=== PATIENT | female | born 1980 | race Hispanic/Latino ===

== ENCOUNTER 2021-12-10 09:15 | Emergency (ER) | payer OTHER ==
[2021-12-10] MEDS ORDERED: IPRATROPIUM 0.02% NEBU 2.5 ML IH ONE (09:50)
[2021-12-10] MEDS ORDERED: ALBUTEROL 2.5 MG/3 ML NEBU IH ONE (09:50)
[2021-12-10] MEDS ORDERED: dexAMETHasone 20 MG/5 ML VIAL IV ONE (09:51)
--- NOTE | 2021-12-10 12:18 | Emergency Department Report ---
ED General Adult HPI - General Chief complaint: Adult Asthma Stated complaint: ASTHMA ATTACK Time Seen by Provider: 12/10/21 09:50 Source: patient Mode of arrival: Ambulatory Limitations: No Limitations - History of Present Illness Initial comments: Patient is a 41-year-old female who presents with shortness of breath that has been going on since 9 PM last night. Shortness of breath is moderate. She states that she recently picked up her asthmatic medication she denies having any chest pain she states her shortness of breath is worse with exertion no leg swelling no cough. Severity scale (0 -10): 0 - Related Data Allergies Allergy/AdvReac Type Severity Reaction Status Date / Time No Known Allergies Allergy Unverified 12/10/21 09:42 ED Review of Systems ROS: Stated complaint: ASTHMA ATTACK Other details as noted in HPI Constitutional: denies: chills, fever Eyes: denies: eye pain, eye discharge, vision change ENT: denies: ear pain, throat pain Respiratory: shortness of breath. denies: cough, wheezing Cardiovascular: denies: chest pain, palpitations Endocrine: no symptoms reported Gastrointestinal: denies: abdominal pain, nausea, diarrhea Genitourinary: denies: urgency, dysuria, discharge Musculoskeletal: denies: back pain, joint swelling, arthralgia Skin: denies: rash, lesions Neurological: denies: headache, weakness, paresthesias Psychiatric: denies: anxiety, depression Hematological/Lymphatic: denies: easy bleeding, easy bruising ED Past Medical Hx - Past Medical History Previous Medical History?: Yes Hx Asthma: Yes - Surgical History Past Surgical History?: Yes Hx Cholecystectomy: Yes Additional Surgical History: DNC - Social History Smoking Status: Current Every Day Smoker Substance Use Type: None ED Physical Exam - General Limitations: No Limitations General appearance: alert, in no apparent distress - Head Head exam: Present: atraumatic, normocephalic - Eye Eye exam: Present: normal appearance - ENT ENT exam: Present: mucous membranes moist - Neck Neck exam: Present: normal inspection - Respiratory Respiratory exam: Present: wheezes. Absent: respiratory distress - Cardiovascular Cardiovascular Exam: Present: regular rate, normal rhythm. Absent: systolic murmur, diastolic murmur, rubs, gallop - GI/Abdominal GI/Abdominal exam: Present: soft, normal bowel sounds - Extremities Exam Extremities exam: Present: normal inspection - Back Exam Back exam: Present: normal inspection - Neurological Exam Neurological exam: Present: alert, oriented X3 - Psychiatric Psychiatric exam: Present: normal affect, normal mood - Skin Skin exam: Present: warm, dry, intact, normal color. Absent: rash ED Course Vital Signs 12/10/21 12/10/21 12/10/21 09:37 09:56 09:59 Temperature 98.3 F Pulse Rate 85 94 H Pulse Rate [ Bilateral] Respiratory 18 18 19 Rate Respiratory Rate [Bilateral ] Blood Pressure Blood Pressure 143/69 [Left] O2 Sat by Pulse 90 94 95 Oximetry 12/10/21 12/10/21 12/10/21 10:00 10:15 10:16 Temperature Pulse Rate 96 H 87 Pulse Rate [ 89 Bilateral] Respiratory 23 15 Rate Respiratory 18 Rate [Bilateral ] Blood Pressure 151/88 141/86 Blood Pressure [Left] O2 Sat by Pulse 94 95 Oximetry 12/10/21 12/10/21 12/10/21 10:30 10:46 11:00 Temperature Pulse Rate 85 84 88 Pulse Rate [ Bilateral] Respiratory 18 16 15 Rate Respiratory Rate [Bilateral ] Blood Pressure 141/86 150/90 150/90 Blood Pressure [Left] O2 Sat by Pulse 98 98 97 Oximetry 12/10/21 12/10/21 12/10/21 11:16 11:30 11:46 Temperature Pulse Rate 86 91 H 91 H Pulse Rate [ Bilateral] Respiratory 20 16 19 Rate Respiratory Rate [Bilateral ] Blood Pressure 144/83 144/83 144/83 Blood Pressure [Left] O2 Sat by Pulse 97 97 98 Oximetry 12/10/21 12/10/21 12:00 12:16 Temperature Pulse Rate 92 H 95 H Pulse Rate [ Bilateral] Respiratory 19 22 Rate Respiratory Rate [Bilateral ] Blood Pressure 147/81 157/88 Blood Pressure [Left] O2 Sat by Pulse 98 96 Oximetry - Consultations Consultation #1: 12/10/21 12:44 Patient is feeling better and can be discharged home. ED Medical Decision Making - Medical Decision Making Cdx: Asthmatic excerbatiopn ddx: Bronchitis, smoke exposure I will give breathing treatment and steroids and I will reevaluate the patient Critical care attestation.: If time is entered above; I have spent that time in minutes in the direct care of this critically ill patient, excluding procedure time. ED Disposition Clinical Impression: Asthma exacerbation Qualifiers: Asthma severity: moderate Asthma persistence: unspecified Qualified Code(s): J45.901 - Unspecified asthma with (acute) exacerbation Disposition: 01 HOME / SELF CARE / HOMELESS Is pt being admited?: No Does the pt Need Aspirin: No Condition: Stable Instructions: Asthma, Adult Referrals: PRIMARY CARE, [Primary Care Provider] - 3-5 Days HENRY SHER MD [Staff Physician] - 3-5 Days
[2021-12-10 13:19] VITALS: BP 131/77
--- NOTE | 2021-12-11 09:13 | Electrocardiograph Report ---
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
== END 2021-12-10 13:19 | disposition home or self-care (01) ==
LOC: ED 09:15
DX: J45.901 Unspecified asthma with (acute) exacerbation (principal); F17.210 Nicotine dependence, cigarettes, uncomplicated
CPT/HCPCS: 93005; 94644; 96374; 99283; J1100

== ENCOUNTER 2021-12-21 17:04 | Emergency (ER) | payer OTHER ==
[2021-12-21] MEDS ORDERED: dexAMETHasone 20 MG/5 ML VIAL IV ONE (17:14)
[2021-12-21] MEDS ORDERED: IPRATROPIUM 0.02% NEBU 2.5 ML IH ONE (17:14)
[2021-12-21] MEDS ORDERED: ALBUTEROL 2.5 MG/3 ML NEBU IH ONE (17:14)
[2021-12-21 17:35] VITALS: BP 161/100
[2021-12-21] MEDS ORDERED: TERBUTALINE 1 MG/1 ML INJ SUB-Q ONE (18:27)
--- NOTE | 2021-12-21 20:00 | Emergency Department Report ---
ED Asthma HPI - General Chief Complaint: Dyspnea/Respdistress Stated Complaint: ASTHMA ATTACK Time Seen by Provider: 12/21/21 18:26 Source: patient Mode of arrival: Ambulatory Limitations: No Limitations - History of Present Illness Initial Comments: 41-year-old white female with a past medical history of asthma presents to the emergency department for evaluation of 1 day history of worsening shortness of breath and wheezing. She states that she was using her albuterol nebulizer at home but was not having any improvement. She denies chest pain, fever, dizziness, nausea, vomiting, and abdominal pain. MD Complaint: "asthma attack", shortness of breath, wheezing -: hour(s) Severity: moderate Associated Symptoms: dry cough. denies: fever, chest pain, hemoptysis, leg edema, syncope Treatments Prior to Arrival: inhaled bronchodilator - Related Data Current Asthma Therapy: inhaled bronchodilator Previous Rx's Medication Instructions Recorded Last Taken Type Benzonatate [Tessalon Perles] 100 mg PO Q8HR PRN #30 cap 12/21/21 Unknown Rx Prednisone [predniSONE 10 mg 10 mg PO .TAPER #1 pack 12/21/21 Unknown Rx (6-Day Pack, 21 Tabs)] guaiFENesin/CODEINE [Robitussin AC] 10 ml PO TID PRN #120 ml 12/21/21 Unknown Rx Allergies Allergy/AdvReac Type Severity Reaction Status Date / Time No Known Allergies Allergy Unverified 12/10/21 09:42 ED Review of Systems ROS: Stated complaint: ASTHMA ATTACK Other details as noted in HPI Comment: All other systems reviewed and negative Constitutional: denies: chills, fever Eyes: denies: eye discharge ENT: denies: congestion Respiratory: cough, shortness of breath, wheezing. denies: SOB with exertion, SOB at rest, stridor Cardiovascular: denies: chest pain, palpitations, dyspnea on exertion, orthopnea, edema, syncope, paroxysmal nocturnal dyspnea Gastrointestinal: denies: abdominal pain, nausea, vomiting, diarrhea, hematemesis, melena, hematochezia Genitourinary: denies: urgency, dysuria Musculoskeletal: denies: back pain Skin: denies: rash, lesions Neurological: denies: headache, weakness Psychiatric: denies: anxiety, depression ED Past Medical Hx - Past Medical History Hx Asthma: Yes Additional medical history: colonscopy - Surgical History Hx Cholecystectomy: Yes Additional Surgical History: DNC, tubal ligation, intubated twice for asthma - Social History Smoking Status: Never Smoker - Medications Home Medications: Home Medications Medication Instructions Recorded Confirmed Last Taken Type Benzonatate [Tessalon Perles] 100 mg PO Q8HR PRN #30 cap 12/21/21 Unknown Rx Prednisone [predniSONE 10 mg 10 mg PO .TAPER #1 pack 12/21/21 Unknown Rx (6-Day Pack, 21 Tabs)] guaiFENesin/CODEINE [Robitussin AC] 10 ml PO TID PRN #120 ml 12/21/21 Unknown R x ED Physical Exam - General Limitations: No Limitations General appearance: alert, in no apparent distress - Head Head exam: Present: atraumatic, normocephalic - Eye Eye exam: Present: normal appearance. Absent: scleral icterus, conjunctival injection, periorbital swelling, periorbital tenderness - ENT ENT exam: Present: normal exam - Neck Neck exam: Present: normal inspection, full ROM. Absent: tenderness, lymphadenopathy - Respiratory Respiratory exam: Present: wheezes. Absent: respiratory distress, rales, rhonchi, stridor, chest wall tenderness, accessory muscle use - Cardiovascular Cardiovascular Exam: Present: tachycardia, normal heart sounds - GI/Abdominal GI/Abdominal exam: Present: soft, normal bowel sounds. Absent: distended, tenderness, guarding, rebound, rigid - Extremities Exam Extremities exam: Present: normal inspection, full ROM, normal capillary refill. Absent: pedal edema, joint swelling, calf tenderness - Back Exam Back exam: Present: normal inspection. Absent: CVA tenderness (R), CVA tenderness (L) - Neurological Exam Neurological exam: Present: alert, oriented X3, normal gait - Psychiatric Psychiatric exam: Present: normal affect, normal mood - Skin Skin exam: Present: warm, dry, intact, normal color ED Course Vital Signs 12/21/21 17:08 Temperature 98.9 F Pulse Rate 116 H Respiratory 28 H Rate Blood Pressure 161/100 O2 Sat by Pulse 89 Oximetry ED Medical Decision Making - Medical Decision Making 41-year-old white female with a past medical history of asthma presents to the emergency department for evaluation of 1 day history of worsening shortness of breath and wheezing. She states that she was using her albuterol nebulizer at home but was not having any improvement. She denies chest pain, fever, dizziness, nausea, vomiting, and abdominal pain. Wheezing and shortness of breath resolved completely after medications and DuoNeb. Patient states that she feels much better. She will be discharged home with steroid Dosepak along with Tessalon and Robitussin-AC to use as needed for cough. She is advised to follow-up with her primary care provider or pulmon ologist for further evaluation and management or return to the emergency department for any concerning symptoms. She verbalizes understanding of and agreement with plan of care. Critical care attestation.: If time is entered above; I have spent that time in minutes in the direct care of this critically ill patient, excluding procedure time. ED Disposition Clinical Impression: Asthma exacerbation Qualifiers: Asthma severity: mild Asthma persistence: intermittent Qualified Code(s): J45.21 - Mild intermittent asthma with (acute) exacerbation Disposition: HOME / SELF CARE / HOMELESS Is pt being admited?: No Does the pt Need Aspirin: No Condition: Stable Instructions: Asthma, Adult, [id number], Asthma Attack, Asthma Attack Prevention, Adult Additional Instructions: Take medications as prescribed. Follow-up with your primary care provider or lung doctor if no improvement or worsening symptoms. Return to the emergency department as needed. Prescriptions: Prednisone [predniSONE 10 mg (6-Day Pack, 21 Tabs)] 10 mg PO .TAPER #1 pack guaiFENesin/CODEINE [Robitussin AC] 10 ml PO TID PRN #120 ml PRN Reason: Cough Benzonatate [Tessalon Perles] 100 mg PO Q8HR PRN #30 cap PRN Reason: Cough Referrals: HERNY SHER MD [Staff Physician] - 3-5 Days MIKE GARY MD [Staff Physician] - 3-5 Days Time of Disposition: 20:02
== END 2021-12-21 22:04 | disposition home or self-care (01) ==
LOC: ED 17:04
DX: J45.901 Unspecified asthma with (acute) exacerbation (principal); Z90.49 Acquired absence of other specified parts of digestive tract; Z79.899 Other long term (current) drug therapy
CPT/HCPCS: 94640; 96372; 96374; 99283; J1100; J3105

== ENCOUNTER 2021-12-22 08:12 | Inpatient (IN) | payer OTHER ==
[2021-12-22] MEDS ORDERED: ALBUTEROL 2.5 MG/3 ML NEBU IH ONE ×3 (10:30→15:04)
[2021-12-22] MEDS ORDERED: IPRATROPIUM 0.02% NEBU 2.5 ML IH ONE ×3 (10:30→15:04)
--- NOTE | 2021-12-22 11:11 | XRay Report ---
CHEST 1 VIEW 12/22/2021 10:00 AM INDICATION / CLINICAL INFORMATION: SOB. COMPARISON: None available. FINDINGS: SUPPORT DEVICES: None. HEART / MEDIASTINUM: No significant abnormality. LUNGS / PLEURA: No significant pulmonary or pleural abnormality. No pneumothorax. ADDITIONAL FINDINGS: No significant additional findings. IMPRESSION: 1. No acute findings. Signer Name: Mati Trinidad MD Signed: 12/22/2021 11:04 AM Workstation Name: [id number]
[2021-12-22] MEDS ORDERED: methylPREDNISolone Sod Succinate 125 MG/2 ML INJ IV ONE ×2 (11:38→15:00)
[2021-12-22] MEDS ORDERED: MAGNESIUM SULFATE 2 GM/50 ML BAG IV ONE ×3 (11:38→22:00)
--- NOTE | 2021-12-22 11:58 | Emergency Department Report ---
ED Asthma HPI - General Chief Complaint: Dyspnea/Respdistress Stated Complaint: SOB Time Seen by Provider: 12/22/21 11:15 Source: patient Mode of arrival: Ambulatory Limitations: No Limitations - History of Present Illness Initial Comments: 41-year-old obese female history of asthma with 2 previous intubations several years ago presents to the hospital with wheezing, shortness of breath, and hypoxia. Patient reports home pulse ox reading of 74%. Patient suspected she was hypoxic because she was short of breath and had a headache. Symptoms with exertion. No alleviating factors reported. she complains of generalized chest tightness, occasional cough with sneezing. She denies calf tenderness, leg edema, history of PE/DVT, or current control pill use (history of tubal ligation). Patient was here twice this month including yesterday with acute asthma exacerbation. She has not yet filled her prednisone prescription which was provided yesterday. Patient suspects she is having frequent exacerbation because she has run out of Labcyte and cannot afford to buy another afford the medication. She states her doctor who is located in [place] typically gives her free samples but she is here visiting here mother. - Related Data Previous Rx's Medication Instructions Recorded Last Taken Type Benzonatate [Tessalon Perles] 100 mg PO Q8HR PRN #30 cap 12/21/21 Unknown Rx Prednisone [predniSONE 10 mg 10 mg PO .TAPER #1 pack 12/21/21 Unknown Rx (6-Day Pack, 21 Tabs)] guaiFENesin/CODEINE [Robitussin AC] 10 ml PO TID PRN #120 ml 12/21/21 Unknown Rx Allergies Allergy/AdvReac Type Severity Reaction Status Date / Time No Known Allergies Allergy Verified 12/22/21 14:26 ED Review of Systems ROS: Stated complaint: SOB Other details as noted in HPI ED Past Medical Hx - Past Medical History Hx Asthma: Yes Additional medical history: colonscopy - Surgical History Hx Cholecystectomy: Yes Additional Surgical History: DNC, tubal ligation, intubated twice for asthma - Social History Smoking Status: Never Smoker - Medications Home Medications: Home Medications Medication Instructions Recorded Confirmed Last Taken Type Benzonatate [Tessalon Perles] 100 mg PO Q8HR PRN #30 cap 12/21/21 Unknown Rx Prednisone [predniSONE 10 mg 10 mg PO .TAPER #1 pack 12/21/21 Unknown Rx (6-Day Pack, 21 Tabs)] guaiFENesin/CODEINE [Robitussin AC] 10 ml PO TID PRN #120 ml 12/21/21 Unknown Rx ED Physical Exam - General Limitations: No Limitations - Other Other exam information: General: Mild respiratory distress Head: Atraumatic Eyes: normal appearance ENT: Moist mucous membranes Neck: Normal appearance, no midline tenderness Chest: Bilateral tachypnea wheezing CV: Mild tachycardia regular rhythm Abdomen: Soft, normal bowel sounds, nontender, nondistended, no rebound or guarding Back: Normal inspection Extremity: Normal inspection, full range of motion, no calf tenderness or leg Neuro: Alert O x 3, no facial asymmetry, speech clear, no gross motor sensory deficit Psych: Appropriate behavior Skin: No rash ED Course Vital Signs 12/22/21 08:24 Temperature 98.3 F Pulse Rate 116 H Respiratory 24 Rate Blood Pressure 157/94 O2 Sat by Pulse 86 Oximetry ED Medical Decision Making - Lab Data Result diagrams: 12/22/21 12:17 12/22/21 12:17 Lab Results 12/22/21 12/22/21 12/22/21 Range/Units 12:17 12:17 12:17 WBC 24.6 H (4.5-11.0) K/mm3 RBC 4.73 (3.65-5.03) M/mm3 Hgb 13.5 (10.1-14.3) gm/dl Hct 41.3 (30.3-42.9) % MCV 87 (79-97) fl MCH 29 (28-32) pg MCHC 33 (30-34) % RDW 14.7 (13.2-15.2) % Plt Count 392 (140-440) K/mm3 Add Manual Diff Complete Total Counted 100 Seg Neuts % (Manual) 91.0 H (40.0-70.0) % Band Neutrophils % 1.0 % Lymphocytes % (Manual) 6.0 L (13.4-35.0) % Reactive Lymphs % (Man) 0 % Monocytes % (Manual) 2.0 (0.0-7.3) % Eosinophils % (Manual) 0 (0.0-4.3) % Basophils % (Manual) 0 (0.0-1.8) % Metamyelocytes % 0 % Myelocytes % 0 % Promyelocytes % 0 % Blast Cells % 0 % Nucleated RBC % Not Reportable Seg Neutrophils # Man 22.4 H (1.8-7.7) K/mm3 Band Neutrophils # 0.2 K/mm3 Lymphocytes # (Manual) 1.5 (1.2-5.4) K/mm3 Abs React Lymphs (Man) 0.0 K/mm3 Monocytes # (Manual) 0.5 (0.0-0.8) K/mm3 Eosinophils # (Manual) 0.0 (0.0-0.4) K/mm3 Basophils # (Manual) 0.0 (0.0-0.1) K/mm3 Metamyelocytes # 0.0 K/mm3 Myelocytes # 0.0 K/mm3 Promyelocytes # 0.0 K/mm3 Blast Cells # 0.0 K/mm3 WBC Morphology Not Reportable Hypersegmented Neuts Not Reportable Hyposegmented Neuts Rare Hypogranular Neuts Not Reportable Smudge Cells Not Reportable Toxic Granulation Not Reportable Toxic Vacuolation Not Reportable Dohle Bodies Not Reportable Pelger-Huet Anomaly Not Reportable Carlos Rods Not Reportable Platelet Estimate Consistent w auto Clumped Platelets Not Reportable Plt Clumps, EDTA Not Reportable Large Platelets Rare Giant Platelets Not Reportable Platelet Satelliting Not Reportable Plt Morphology Comment Not Reportable RBC Morphology Not Reportable Dimorphic RBCs Not Reportable Polychromasia Not Reportable Hypochromasia Not Reportable Poikilocytosis Few Anisocytosis Not Reportable Microcytosis Not Reportable Macrocytosis Not Reportable Spherocytes Not Reportable Pappenheimer Bodies Not Reportable Sickle Cells Not Reportable Target Cells Not Reportable Tear Drop Cells Not Reportable Ovalocytes Rare Helmet Cells Not Reportable [place] Bodies Not Reportable Prim Rings Not Reportable Lindsay Cells Rare Bite Cells Not Reportable Crenated Cell Not Reportable Elliptocytes Not Reportable Acanthocytes (Spur) Not Reportable Rouleaux Not Reportable Hemoglobin C Crystals Not Reportable Schistocytes Rare Malaria parasites Not Reportable Werner Bodies Not Reportable Hem Pathologist Commnt No PT 13.7 (12.2-14.9) Sec. INR 0.95 (0.87-1.13) Sodium 137 (137-145) mmol/L Potassium 4.2 (3.6-5.0) mmol/L Chloride 102.5 (98-107) mmol/L Carbon Dioxide 23 (22-30) mmol/L Anion Gap 16 mmol/L BUN 14 (7-17) mg/dL Creatinine 0.8 (0.6-1.2) mg/dL Estimated GFR > 60 ml/min BUN/Creatinine Ratio 18 % Glucose 134 H (65-100) mg/dL Calcium 9.5 (8.4-10.2) mg/dL - EKG Data -: EKG Interpreted by Me (BRIANNA) EKG shows normal: sinus rhythm Rate: tachycardia (112) - EKG Data When compared to previous EKG there are: no significant change - Radiology Data Radiology results: report reviewed CHEST 1 VIEW 12/22/2021 10:00 AM INDICATION / CLINICAL INFORMATION: SOB. COMPARISON: None available. FINDINGS: SUPPORT DEVICES: None. HEART / MEDIASTINUM: No significant abnormality. LUNGS / PLEURA: No significant pulmonary or pleural abnormality. No pne umothorax. ADDITIONAL FINDINGS: No significant additional findings. IMPRESSION: 1. No acute findings. - Medical Decision Making 41-year female with a past medical history of asthma with 2 previous intubations presents to the hospital with persistent asthma despite ED treatment yesterday. Patient continues to have significant wheezing, hypoxia, shortness of breath despite aggressive management in the ED. Patient treated with supplemental oxygen for initial room air saturation 86%, continuous nebs, Solu-Medrol, and magnesium and continues to have significant wheezing. Leukocytosis noted which is unclear if this is secondary to steroid use, stress reaction, or infection. Blood cultures and UA ordered. Patient empirically treated with azithromycin. Case discussed with Dr. Arroyo hospitalist to admit Critical Care Time: Yes Critical care time in (mins) excluding proc time.: 40 Critical care attestation.: If time is entered above; I have spent that time in minutes in the direct care of this critically ill patient, excluding procedure time. Critical Care Time: 40 Minutes of critical care time excluding procedures were used in the care of the patient. I reviewed electronic record. I spoke with family to obtain medical history. Patient required multiple interventions and reassessments including continuous bronchodilators, and supplemental oxygen. ED Disposition Clinical Impression: Acute respiratory failure with hypoxia, Status asthmaticus, SIRS (systemic inflammatory response syndrome) Disposition: 09 ADMITTED INPATIENT Is pt being admited?: Yes Condition: Stable Time of Disposition: 15:09
[2021-12-22 13:07] LABS: Hematocrit 41.3 % (30.3-42.9); Hemoglobin 13.5 gm/dl (10.1-14.3); Mean Corpuscular HGB Conc 33 % (30-34); Mean Corpuscular Volume 87 fl (79-97); Platelet Count 392 K/mm3 (140-440); Red Blood Count 4.73 M/mm3 (3.65-5.03); Red Cell Distribution Width 14.7 % (13.2-15.2)
[2021-12-22 13:13] LABS: BUN/Creatinine Ratio 18; Blood Urea Nitrogen 14 mg/dL (7-17); Calcium 9.5 mg/dL (8.4-10.2); Hemolysis Index 5
[2021-12-22 13:15] LABS: INR 0.95 (0.87-1.13)
[2021-12-22 14:38] LABS: Band Neutrophils # (Manual) 0.2 K/mm3; Basophils % (Manual) 0 % (0.0-1.8); Eosinophils % (Manual) 0 % (0.0-4.3); Total Cells Counted 100
[2021-12-22 14:39] LABS: Ovalocytes Rare; Poikilocytosis Few; Schistocytes Rare
[2021-12-22 14:40] LABS: Burr Cells Rare; Large Platelets Rare; Platelet Estimate Consistent w Auto
[2021-12-22] MEDS ORDERED: AZITHROMYCIN/NS 500 MG/250 ML 500 MG/250 ML BAG IV ONE ×2 (15:05→22:20)
[2021-12-22] MEDS ORDERED: ONDANSETRON 4 MG/2 ML INJ IV PRN ×2 (15:13→21:38)
[2021-12-22] MEDS ORDERED: ACETAMINOPHEN 325 MG TAB PO PRN ×2 (15:13→21:38)
[2021-12-22] MEDS ORDERED: MORPHINE 2 MG/1 ML INJ IV PRN (15:14)
[2021-12-22] MEDS ORDERED: BENZONATATE 100 MG CAP PO PRN (21:35)
--- NOTE | 2021-12-22 21:35 | History and Physical Report ---
History of Present Illness Date of examination: 12/22/21 Date of admission: 12/22/21 15:13 Chief complaint: Severe wheezing and shortness of breath for 2 days History of present illness: 41-year-old obese female history of asthma with 2 previous intubations several years ago presents to the hospital with wheezing, shortness of breath, and hypoxia. Patient reports home pulse ox reading of 74%. Patient suspected she was hypoxic because she was short of breath and had a headache. Symptoms with exertion. No alleviating factors reported. she complains of generalized chest tightness, occasional cough with sneezing. She denies calf tenderness, leg edema, history of PE/DVT, or current control pill use (history of tubal ligation). Patient was here twice this month including yesterday with acute asthma exacerbation. She has not yet filled her prednisone prescription which was provided yesterday. Patient suspects she is having frequent exacerbation because she has run out of [employer] and cannot afford to buy another afford the medication. She states her doctor who is located in [place] typically gives her free samples but she is here visiting here mother. Patient has nebulizer machine at home and uses nebulizer machine on regular basis. - Past Medical History --Asthma: Yes --Additional medical history: colonscopy - Surgical History --Cholecystectomy: Yes --Additional Surgical History: DNC, tubal ligation, intubated twice for asthma - Social History --Smoking Status: Never Smoker -Family history --Htn Review of Systems ROS: Constitutional no weight loss or weight gain no fever or chills HEENT no sore throat no post nasal drip no diplopia Neck no neck stiffness no lymph gland enlargement Chest and lungs severe wheezing and shortness of breath CVS no chest pain no diaphoresis no palpitations GI no nausea no vomiting no diarrhea Genitourinary system no dysuria no flank pain Musculoskeletal system no muscle pains no 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 Skin no rash no itching Psychiatric no depression no homicidal or suicidal tendencies Hematologic no lymphedema or bruising Endocrine no polydipsia no polyuria no cold intolerance no heat intolerance Medications and Allergies Allergies Allergy/AdvReac Type Severity Reaction Status Date / Time No Known Allergies Allergy Verified 12/22/21 14:26 Home Medications Medication Instructions Recorded Confirmed Last Taken Type Benzonatate [Tessalon Perles] 100 mg PO Q8HR PRN #30 cap 12/21/21 Unknown Rx Prednisone [predniSONE 10 mg 10 mg PO .TAPER #1 pack 12/21/21 Unknown Rx (6-Day Pack, 21 Tabs)] guaiFENesin/CODEINE [Robitussin AC] 10 ml PO TID PRN #120 ml 12/21/21 Unknown Rx Active Meds: Active Medications Acetaminophen (Acetaminophen 325 Mg Tab) 650 mg PO Q4H PRN PRN Reason: Pain MILD(1-3)/Fever >100.5/TEAGUE Morphine Sulfate (Morphine 2 Mg/1 Ml Inj) 2 mg IV Q4H PRN PRN Reason: Pain, Moderate (4-6) Ondansetron HCl (Ondansetron 4 Mg/2 Ml Inj) 4 mg IV Q8H PRN PRN Reason: Nausea And Vomiting Sodium Chloride (Sodium Chloride 0.9% 10 Ml Flush Syringe) 10 ml IV BID ANTHONY Sodium Chloride (Sodium Chloride 0.9% 10 Ml Flush Syringe) 10 ml IV PRN PRN PRN Reason: LINE FLUSH Exam - Constitutional Vitals: Temp Pulse Resp BP Pulse Ox 97.8 F 86 24 165/78 96 12/22/21 19:58 12/22/21 19:58 12/22/21 19:58 12/22/21 19:58 12/22/21 19:58 General appearance: Present: severe distress, well-nourished - EENT Eyes: Present: PERRL ENT: hearing intact, clear oral mucosa - Neck Neck: Present: supple, normal ROM - Respiratory Respiratory effort: normal Respiratory: bilateral: diminished, rhonchi, wheezing - Cardiovascular Heart rate: 78 Rhythm: regular Heart Sounds: Present: S1 & S2. Absent: rub, click - Extremities Extremities: pulses symmetrical, No edema Peripheral Pulses: within normal limits - Abdominal General gastrointestinal: Present: soft, non-tender, non-distended, normal bowel sounds Female genitourinary: Present: normal - Integumentary Integumentary: Present: clear, warm, dry - Musculoskeletal Musculoskeletal: gait normal, strength equal bilaterally - Psychiatric Psychiatric: appropriate mood/affect, intact judgment & insight - Neurologic Neurologic: CNII-XII intact, moves all extremities Results - Labs CBC & Chem 7: 12/23/21 05:21 12/23/21 05:21 Labs: Laboratory Last Values WBC 24.6 K/mm3 (4.5-11.0) H 12/22/21 12:17 RBC 4.73 M/mm3 (3.65-5.03) 12/22/21 12:17 Hgb 13.5 gm/dl (10.1-14.3) 12/22/21 12:17 Hct 41.3 % (30.3-42.9) 12/22/21 12:17 MCV 87 fl (79-97) 12/22/21 12:17 MCH 29 pg (28-32) 12/22/21 12:17 MCHC 33 % (30-34) 12/22/21 12:17 RDW 14.7 % (13.2-15.2) 12/22/21 12:17 Plt Count 392 K/mm3 (140-440) 12/22/21 12:17 Add Manual Diff Complete 12/22/21 12:17 Total Counted 100 12/22/21 12:17 Seg Neuts % (Manual) 91.0 % (40.0-70.0) H 12/22/21 12:17 Band Neutrophils % 1.0 % 12/22/21 12:17 Lymphocytes % (Manual) 6.0 % (13.4-35.0) L 12/22/21 12:17 Reactive Lymphs % (Man) 0 % 12/22/21 12:17 Monocytes % (Manual) 2.0 % (0.0-7.3) 12/22/21 12:17 Eosinophils % (Manual) 0 % (0.0-4.3) 12/22/21 12:17 Basophils % (Manual) 0 % (0.0-1.8) 12/22/21 12:17 Metamyelocytes % 0 % 12/22/21 12:17 Myelocytes % 0 % 12/22/21 12:17 Promyelocytes % 0 % 12/22/21 12:17 Blast Cells % 0 % 12/22/21 12:17 Nucleated RBC % Not Reportable 12/22/21 12:17 Seg Neutrophils # Man 22.4 K/mm3 (1.8-7.7) H 12/22/21 12:17 Band Neutrophils # 0.2 K/mm3 12/22/21 12:17 Lymphocytes # (Manual) 1.5 K/mm3 (1.2-5.4) 12/22/21 12:17 Abs React Lymphs (Man) 0.0 K/mm3 12/22/21 12:17 Monocytes # (Manual) 0.5 K/mm3 (0.0-0.8) 12/22/21 12:17 Eosinophils # (Manual) 0.0 K/mm3 (0.0-0.4) 12/22/21 12:17 Basophils # (Manual) 0.0 K/mm3 (0.0-0.1) 12/22/21 12:17 Metamyelocytes # 0.0 K/mm3 12/22/21 12:17 Myelocytes # 0.0 K/mm3 12/22/21 12:17 Promyelocytes # 0.0 K/mm3 12/22/21 12:17 Blast Cells # 0.0 K/mm3 12/22/21 12:17 WBC Morphology Not Reportable 12/22/21 12:17 Hypersegmented Neuts Not Reportable 12/22/21 12:17 Hyposegmented Neuts Rare 12/22/21 12:17 Hypogranular Neuts Not Reportable 12/22/21 12:17 Smudge Cells Not Reportable 12/22/21 12:17 Toxic Granulation Not Reportable 12/22/21 12:17 Toxic Vacuolation Not Reportable 12/22/21 12:17 Dohle Bodies Not Reportable 12/22/21 12:17 Pelger-Huet Anomaly Not Reportable 12/22/21 12:17 Carlos Rods Not Reportable 12/22/21 12:17 Platelet Estimate Consistent w auto 12/22/21 12:17 Clumped Platelets Not Reportable 12/22/21 12:17 Plt Clumps, EDTA Not Reportable 12/22/21 12:17 Large Platelets Rare 12/22/21 12:17 Giant Platelets Not Reportable 12/22/21 12:17 Platelet Satelliting Not Reportable 12/22/21 12:17 Plt Morphology Comment Not Reportable 12/22/21 12:17 RBC Morphology Not Reportable 12/22/21 12:17 Dimorphic RBCs Not Reportable 12/22/21 12:17 Polychromasia Not Reportable 12/22/21 12:17 Hypochromasia Not Reportable 12/22/21 12:17 Poikilocytosis Few 12/22/21 12:17 Anisocytosis Not Reportable 12/22/21 12:17 Microcytosis Not Reportable 12/22/21 12:17 Macrocytosis Not Reportable 12/22/21 12:17 Spherocytes Not Reportable 12/22/21 12:17 Pappenheimer Bodies Not Reportable 12/22/21 12:17 Sickle Cells Not Reportable 12/22/21 12:17 Target Cells Not Reportable 12/22/21 12:17 Tear Drop Cells Not Reportable 12/22/21 12:17 Ovalocytes Rare 12/22/21 12:17 Helmet Cells Not Reportable 12/22/21 12:17 [place] Bodies Not Reportable 12/22/21 12:17 [place] Rings Not Reportable 12/22/21 12:17 Lindsay Cells Rare 12/22/21 12:17 Bite Cells Not Reportable 12/22/21 12:17 Crenated Cell Not Reportable 12/22/21 12:17 Elliptocytes Not Reportable 12/22/21 12:17 Acanthocytes (Spur) Not Reportable 12/22/21 12:17 Rouleaux Not Reportable 12/22/21 12:17 Hemoglobin C Crystals Not Reportable 12/22/21 12:17 Schistocytes Rare 12/22/21 12:17 Malaria parasites Not Reportable 12/22/21 12:17 Werner Bodies Not Reportable 12/22/21 12:17 Hem Pathologist Commnt No 12/22/21 12:17 PT 13.7 Sec. (12.2-14.9) 12/22/21 12:17 INR 0.95 (0.87-1.13) 12/22/21 12:17 Sodium 137 mmol/L (137-145) 12/22/21 12:17 Potassium 4.2 mmol/L (3.6-5.0) 12/22/21 12:17 Chloride 102.5 mmol/L (98-107) 12/22/21 12:17 Carbon Dioxide 23 mmol/L (22-30) 12/22/21 12:17 Anion Gap 16 mmol/L 12/22/21 12:17 BUN 14 mg/dL (7-17) 12/22/21 12:17 Creatinine 0.8 mg/dL (0.6-1.2) 12/22/21 12:17 Estimated GFR > 60 ml/min 12/22/21 12:17 BUN/Creatinine Ratio 18 % 12/22/21 12:17 Glucose 134 mg/dL (65-100) H 12/22/21 12:17 Calcium 9.5 mg/dL (8.4-10.2) 12/22/21 12:17 Short CBC 12/22/21 12/23/21 Range/Units 12:17 05:21 WBC 24.6 H 19.9 H (4.5-11.0) K/mm3 Hgb 13.5 12.9 (10.1-14.3) gm/dl Hct 41.3 39.2 (30.3-42.9) % Plt Count 392 355 (140-440) K/mm3 BMP 12/22/21 12/23/21 12:17 05:21 Sodium 137 137 Potassium 4.2 4.5 Chloride 102.5 104.4 Carbon Dioxide 23 20 L BUN 14 16 Creatinine 0.8 0.8 Glucose 134 H 152 H Calcium 9.5 8.5 Liver Function 12/23/21 Range/Units 05:21 Total Bilirubin < 0.20 (0.1-1.2) mg/dL AST 11 (5-40) units/L ALT 20 (7-56) units/L Alkaline Phosphatase 91 (35-129) units/L Albumin 3.9 (3.9-5) g/dL Microbiology: Microbiology 12/22/21 15:39 Peripheral/Venous Blood Culture - Preliminary Culture in Progress 12/22/21 15:39 Peripheral/Venous Blood Culture - Preliminary Culture in Progress Assessment and Plan Advance Directives: Yes Plan of care discussed with patient/family: Yes - Patient Problems (1) Acute respiratory failure with hypoxia Current Visit: Yes Status: Acute Plan to address problem: Patient was hypoxic initially. Patient improved with continuous nebulizer treatments IV steroids and IV antibiotics Continue nebulizer treatments IV antibiotics and nebulizer treatments (2) SIRS (systemic inflammatory response syndrome) Current Visit: Yes Status: Acute Plan to address problem: Patient has leukocytosis Consistent with Sirs (3) Status asthmaticus Current Visit: Yes Status: Acute Qualifiers: Asthma severity: severe Plan to address problem: Patient initiated on IV antibiotics in the form of ceftriaxone and Zithromax, IV Solu-Medrol at maximum dose and duo nebs. Solu-Medrol will be tapered off. Pulmonary consult if necessary. (4) DVT prophylaxis Current Visit: Yes Status: Acute Plan to address problem: On heparin and GI prophylaxis (5) Advance care planning Current Visit: Yes Status: Acute Plan to address problem: Disease education conducted: Care plan discussed, diagnosis discussed And prognosis discussed. Patient acknowledges understanding with care plan. +30 minutes.
[2021-12-22] MEDS ORDERED: METOCLOPRAMIDE 10 MG/2 ML INJ IV PRN (21:39)
[2021-12-22] MEDS ORDERED: oxyCODONE /ACETAMINOPHEN 5-325MG TAB PO PRN (21:39)
[2021-12-22] MEDS ORDERED: IPRATROPIUM/ALBUTEROL SULFATE 3 ML AMPUL.NEB IH PRN (21:45)
[2021-12-22] MEDS ORDERED: SODIUM CHLORIDE 0.9% 1000 ML 1,000 ML IV SCH (21:45)
[2021-12-22] MEDS ORDERED: FAMOTIDINE 20 MG/2 ML INJ IV SCH (22:00)
[2021-12-22] MEDS: methylPREDNISolone Sod Succinate 40 MG/1 ML INJ IV SCH (22:39)
[2021-12-22] MEDS: cefTRIAXone/NS 2 GM/100 ML 2 GM/100 ML BAG IV SCH (23:55)
[2021-12-23] MEDS ORDERED: ALBUTEROL 2.5 MG/3 ML NEBU IH PRN (01:36)
[2021-12-23 05:37] LABS: Hematocrit 39.2 % (30.3-42.9); Hemoglobin 12.9 gm/dl (10.1-14.3); Mean Corpuscular HGB Conc 33 % (30-34); Mean Corpuscular Volume 87 fl (79-97); Platelet Count 355 K/mm3 (140-440); Red Blood Count 4.49 M/mm3 (3.65-5.03); Red Cell Distribution Width 14.5 % (13.2-15.2)
[2021-12-23 06:01] LABS: Alanine Aminotransferase 20 units/L (7-56); Albumin 3.9 g/dL (3.9-5); BUN/Creatinine Ratio 20; Blood Urea Nitrogen 16 mg/dL (7-17); Calcium 8.5 mg/dL (8.4-10.2); Hemolysis Index 8
[2021-12-23] MEDS: methylPREDNISolone Sod Succinate 40 MG/1 ML INJ IV SCH ×3 (06:02→22:13)
[2021-12-23 06:43] LABS: Total Cells Counted 100
[2021-12-23 06:44] LABS: Basophils % (Manual) 0 % (0.0-1.8); Eosinophils % (Manual) 0 % (0.0-4.3)
[2021-12-23 06:45] LABS: Platelet Estimate Consistent w Auto
[2021-12-23] MEDS: IPRATROPIUM/ALBUTEROL SULFATE 3 ML AMPUL.NEB IH SCH ×4 (07:55→21:18)
--- NOTE | 2021-12-23 09:41 | Electrocardiograph Report ---
[facility] Test Date: 2021-12-22 Test Time: 17:32:54 Pat Name: DOMINIQUE UP Department: Room: A383 Gender: F [employer] Mixer: LYNSEY : [id number] Requested By: ASHLEY CASH Order Number: [id number] Reading MD: Reginald Ibarra Measurements Intervals [place] Rate: 112 P: 49 IL: 138 QRS: 76 QRSD: 139 T: 34 QT: 358 QTc: 489 Interpretive Statements Sinus tachycardia Right bundle branch block Compared to ECG 12/10/2021 09:47:49 Sinus rhythm no longer present Electronically Signed On 12-23-2021 9:41:01 EDT by Reginald Ibarra
[2021-12-23] MEDS ORDERED: cefTRIAXone/NS 2 GM/100 ML 2 GM/100 ML BAG IV SCH (10:00)
[2021-12-23] MEDS ORDERED: AZITHROMYCIN/NS 500 MG/250 ML 500 MG/250 ML BAG IV SCH (10:00)
--- NOTE | 2021-12-23 10:07 | Progress Note ---
Assessment and Plan Assessment and plan: History of present illness: 41-year-old obese female history of asthma with 2 previous intubations several years ago presents to the hospital with wheezing, shortness of breath, and hypoxia. Patient reports home pulse ox reading of 74%. Patient suspected she was hypoxic because she was short of breath and had a headache. Symptoms with exertion. No alleviating factors reported. she complains of generalized chest tightness, occasional cough with sneezing. She denies calf tenderness, leg edema, history of PE/DVT, or current control pill use (history of tubal ligation). Patient was here twice this month including yesterday with acute asthma exacerbation. She has not yet filled her prednisone prescription which was provided yesterday. Patient suspects she is having frequent exacerbation because she has run out of [employer] and cannot afford to buy another afford the medication. She states her doctor who is located in [place] typically gives her free samples but she is here visiting here mother. Patient has nebulizer machine at home and uses nebulizer machine on regular basis. Hospital Course: 12/23: Still complaining of wheezes. Currently on 4L/min NC. Added budesonide to medications. home O2 eval ordered, notified CM as well. Assessment: #Acute respiratory failure with hypoxia - on 4l/min, wean as sats tolerate. scattered wheezes on exam - CXR: no acute findings. #SIRS - tachy/tachypneic, WBC 24.6K on admit, now downtrending. - likely reactive, doubt infection. #Asthma exacerbation #COPD exacerbation # Nicotine Abuse. - Cigarettes. attempting to quit. nicotine patch - behavioral health counseling administered which included education on benefits of smoking cessation as well as options for quitting. +15 min. #Advance care planning Disease education conducted, care plan discussed, diagnoses discussed, prognosis discussed, patient is full code, patient acknowledges understanding and agree with care plan, +30 minutes. Plan: -[id number] inhaler therapy with budesonide/duonebs. - azithromycin/rocephin, ordered procalcitonin. Can possibly d/c rocephin tomorrow. - monteleukast po qhs - solumedrol IV - home O2 eval -Titrate nasal cannula down for sats greater than 92% - CM consult for possible home O2 arrangements and med cost assistance Disposition Plan: med/surg Total Time Spent with Patient (Minutes): 35 History Interval history: Complaining of wheezes this morning. Patient states that she does not utilize oxygen at home. She is requiring 4 L/min nasal cannula. Hospitalist Physical - Physical exam Narrative exam: Physical Exam: VITAL SIGNS: Reviewed. GENERAL: The patient appears normally developed, Vital signs as documented. Currently on 4 L nasal cannula HEAD: No signs of head trauma. EYES: Pupils are equal. Extraocular motions intact. EARS: Hearing grossly intact. MOUTH: Oropharynx is normal. NECK: No adenopathy, no JVD. CHEST: Wheezes bilaterally CARDIAC: Regular rate and rhythm. S1 and S2, without murmurs, gallops, or rubs. VASCULAR: No Edema. Peripheral pulses normal and equal in all extremities. ABDOMEN: Soft, non tender and non distended. No rebound or guarding, and no masses palpated. Bowel Sounds normal. MUSCULOSKELETAL: Good range of motion of all major joints. Extremities without clubbing, cyanosis or edema. NEUROLOGIC EXAM: Alert and oriented x 4. no focal sensory or strength deficits. PSYCHIATRIC: Mood normal. SKIN: detail exam as documented in skin assessment - Constitutional Vitals: Temp Pulse Resp BP Pulse Ox 97.8 F 91 H 18 165/78 95 12/22/21 19:58 12/23/21 07:55 12/23/21 07:55 12/22/21 19:58 12/23/21 07:56 General appearance: Present: severe distress, well-nourished Results - Labs CBC & Chem 7: 12/23/21 05:21 12/23/21 05:21 Labs: Laboratory Last Values WBC 19.9 K/mm3 (4.5-11.0) H 12/23/21 05:21 RBC 4.49 M/mm3 (3.65-5.03) 12/23/21 05:21 Hgb 12.9 gm/dl (10.1-14.3) 12/23/21 05:21 Hct 39.2 % (30.3-42.9) 12/23/21 05:21 MCV 87 fl (79-97) 12/23/21 05:21 MCH 29 pg (28-32) 12/23/21 05:21 MCHC 33 % (30-34) 12/23/21 05:21 RDW 14.5 % (13.2-15.2) 12/23/21 05:21 Plt Count 355 K/mm3 (140-440) 12/23/21 05:21 Add Manual Diff Complete 12/23/21 05:21 Total Counted 100 12/23/21 05:21 Seg Neutrophils % Technical Documentation Specialist 12/23/21 05:21 Seg Neuts % (Manual) 95.0 % (40.0-70.0) H 12/23/21 05:21 Band Neutrophils % 0 % 12/23/21 05:21 Lymphocytes % (Manual) 3.0 % (13.4-35.0) L 12/23/21 05:21 Reactive Lymphs % (Man) 0 % 12/23/21 05:21 Monocytes % (Manual) 2.0 % (0.0-7.3) 12/23/21 05:21 Eosinophils % (Manual) 0 % (0.0-4.3) 12/23/21 05:21 Basophils % (Manual) 0 % (0.0-1.8) 12/23/21 05:21 Metamyelocytes % 0 % 12/23/21 05:21 Myelocytes % 0 % 12/23/21 05:21 Promyelocytes % 0 % 12/23/21 05:21 Blast Cells % 0 % 12/23/21 05:21 Nucleated RBC % Not Reportable 12/23/21 05:21 Seg Neutrophils # Man 18.9 K/mm3 (1.8-7.7) H 12/23/21 05:21 Band Neutrophils # 0.0 K/mm3 12/23/21 05:21 Lymphocytes # (Manual) 0.6 K/mm3 (1.2-5.4) L 12/23/21 05:21 Abs React Lymphs (Man) 0.0 K/mm3 12/23/21 05:21 Monocytes # (Manual) 0.4 K/mm3 (0.0-0.8) 12/23/21 05:21 Eosinophils # (Manual) 0.0 K/mm3 (0.0-0.4) 12/23/21 05:21 Basophils # (Manual) 0.0 K/mm3 (0.0-0.1) 12/23/21 05:21 Metamyelocytes # 0.0 K/mm3 12/23/21 05:21 Myelocytes # 0.0 K/mm3 12/23/21 05:21 Promyelocytes # 0.0 K/mm3 12/23/21 05:21 Blast Cells # 0.0 K/mm3 12/23/21 05:21 WBC Morphology Not Reportable 12/23/21 05:21 Hypersegmented Neuts Not Reportable 12/23/21 05:21 Hyposegmented Neuts Not Reportable 12/23/21 05:21 Hypogranular Neuts Not Reportable 12/23/21 05:21 Smudge Cells Not Reportable 12/23/21 05:21 Toxic Granulation Not Reportable 12/23/21 05:21 Toxic Vacuolation Not Reportable 12/23/21 05:21 Dohle Bodies Not Reportable 12/23/21 05:21 Pelger-Huet Anomaly Not Reportable 12/23/21 05:21 Carlos Rods Not Reportable 12/23/21 05:21 Platelet Estimate Consistent w auto 12/23/21 05:21 Clumped Platelets Not Reportable 12/23/21 05:21 Plt Clumps, EDTA Not Reportable 12/23/21 05:21 Large Platelets Not Reportable 12/23/21 05:21 Giant Platelets Not Reportable 12/23/21 05:21 Platelet Satelliting Not Reportable 12/23/21 05:21 Plt Morphology Comment Not Reportable 12/23/21 05:21 RBC Morphology Not Reportable 12/23/21 05:21 Dimorphic RBCs Not Reportable 12/23/21 05:21 Polychromasia Not Reportable 12/23/21 05:21 Hypochromasia Not Reportable 12/23/21 05:21 Poikilocytosis Not Reportable 12/23/21 05:21 Anisocytosis Not Reportable 12/23/21 05:21 Microcytosis Not Reportable 12/23/21 05:21 Macrocytosis Not Reportable 12/23/21 05:21 Spherocytes Not Reportable 12/23/21 05:21 Pappenheimer Bodies Not Reportable 12/23/21 05:21 Sickle Cells Not Reportable 12/23/21 05:21 Target Cells Not Reportable 12/23/21 05:21 Tear Drop Cells Not Reportable 12/23/21 05:21 Ovalocytes Not Reportable 12/23/21 05:21 Helmet Cells Not Reportable 12/23/21 05:21 [place] Bodies Not Reportable 12/23/21 05:21 [place] Rings Not Reportable 12/23/21 05:21 Lindsay Cells Not Reportable 12/23/21 05:21 Bite Cells Not Reportable 12/23/21 05:21 Crenated Cell Not Reportable 12/23/21 05:21 Elliptocytes Not Reportable 12/23/21 05:21 Acanthocytes (Spur) Not Reportable 12/23/21 05:21 Rouleaux Not Reportable 12/23/21 05:21 Hemoglobin C Crystals Not Reportable 12/23/21 05:21 Schistocytes Not Reportable 12/23/21 05:21 Malaria parasites Not Reportable 12/23/21 05:21 Werner Bodies Not Reportable 12/23/21 05:21 Hem Pathologist Commnt No 12/23/21 05:21 PT 13.7 Sec. (12.2-14.9) 12/22/21 12:17 INR 0.95 (0.87-1.13) 12/22/21 12:17 Sodium 137 mmol/L (137-145) 12/23/21 05:21 Potassium 4.5 mmol/L (3.6-5.0) 12/23/21 05:21 Chloride 104.4 mmol/L (98-107) 12/23/21 05:21 Carbon Dioxide 20 mmol/L (22-30) L 12/23/21 05:21 Anion Gap 17 mmol/L 12/23/21 05:21 BUN 16 mg/dL (7-17) 12/23/21 05:21 Creatinine 0.8 mg/dL (0.6-1.2) 12/23/21 05:21 Estimated GFR > 60 ml/min 12/23/21 05:21 BUN/Creatinine Ratio 20 % 12/23/21 05:21 Glucose 152 mg/dL (65-100) H 12/23/21 05:21 Calcium 8.5 mg/dL (8.4-10.2) 12/23/21 05:21 Total Bilirubin < 0.20 mg/dL (0.1-1.2) 12/23/21 05:21 AST 11 units/L (5-40) 12/23/21 05:21 ALT 20 units/L (7-56) 12/23/21 05:21 Alkaline Phosphatase 91 units/L (35-129) 12/23/21 05:21 Total Protein 6.9 g/dL (6.3-8.2) 12/23/21 05:21 Albumin 3.9 g/dL (3.9-5) 12/23/21 05:21 Albumin/Globulin Ratio 1.3 % 12/23/21 05:21 Microbiology: Microbiology 12/22/21 15:39 Peripheral/Venous Blood Culture - Preliminary Culture in Progress 12/22/21 15:39 Peripheral/Venous Blood Culture - Preliminary Culture in Progress Hugo/IV: Voiding Method Toilet Active Medications - Current Medications Current Medications: Generic Name Dose Route Start Last Admin Trade Name Freq PRN Reason Stop Dose Admin Acetaminophen 650 mg 12/22/21 15:13 Acetaminophen 325 Mg Tab PO Q4H PRN Pain MILD(1-3)/Fever >100.5/TEAGUE Albuterol 2.5 mg 12/23/21 01:36 12/23/21 02:12 Albuterol 2.5 Mg/3 Ml Nebu IH 2.5 mg Q4HRT PRN Administration Shortness Of Breath Albuterol/Ipratropium 1 ampul 12/23/21 08:00 12/23/21 07:55 Ipratropium/Albuterol Sulfate 3 Ml Ampul.Neb IH 1 ampul QIDRT ANTHONY Administration Azithromycin 500 mg 12/23/21 10:00 Azithromycin 250 Mg Tab PO 12/26/21 10:01 QDAY ANTHONY Benzonatate 100 mg 12/22/21 21:35 Benzonatate 100 Mg Cap PO Q8HR PRN Cough Budesonide 0.5 mg 12/23/21 10:15 Budesonide 0.5 Mg/2 Ml Nebu IH Q12HRT ANTHONY Famotidine 20 mg 12/23/21 10:00 Famotidine 20 Mg Tab PO BID ANTHONY Sodium Chloride 1,000 mls @ 75 mls/hr 12/22/21 21:45 Nacl 0.9% 1000 Ml IV 12/23/21 12:00 DIRECT ANTHONY Ceftriaxone Sodium 2 gm in 100 mls @ 200 mls/hr 12/22/21 23:00 12/22/21 23:55 Rocephin/Ns 2 Gm/100 Ml IV 12/26/21 23:59 200 mls/hr Q24HR ANTHONY Administration Protocol Methylprednisolone Sodium Succinate 80 mg 12/22/21 22:00 12/22/21 22:39 Methylprednisolone Sod Succinate 40 Mg/1 Ml Inj IV 80 mg Q8HR ANTHONY Administration Metoclopramide HCl 10 mg 12/22/21 21:39 Metoclopramide 10 Mg/2 Ml Inj IV Q6H PRN Nausea And Vomiting Morphine Sulfate 2 mg 12/22/21 15:14 Morphine 2 Mg/1 Ml Inj IV Q4H PRN Pain, Moderate (4-6) Ondansetron HCl 4 mg 12/22/21 15:13 Ondansetron 4 Mg/2 Ml Inj IV Q8H PRN Nausea And Vomiting Oxycodone/Acetaminophen 1 tab 12/22/21 21:39 Oxycodone /Acetaminophen 5-325mg Tab PO Q6H PRN Pain, Moderate (4-6) Pseudoephedrine/Acetam/Chlorphenir 10 ml 12/22/21 21:35 Guaifenesin/Codeine 100-10mg Oral Liqd 5 Ml PO TID PRN Cough Sodium Chloride 10 ml 12/22/21 22:00 12/22/21 22:38 Sodium Chloride 0.9% 10 Ml Flush Syringe IV 10 ml BID ANTHONY Administration Sodium Chloride 10 ml 12/22/21 21:38 Sodium Chloride 0.9% 10 Ml Flush Syringe IV PRN PRN LINE FLUSH
[2021-12-23] MEDS: BUDESONIDE 0.5 MG/2 ML NEBU IH SCH ×2 (11:45→21:19)
[2021-12-23] MEDS: cefTRIAXone/NS 2 GM/100 ML 2 GM/100 ML BAG IV SCH (13:51)
[2021-12-23] MEDS: FAMOTIDINE 20 MG TAB PO SCH ×2 (13:51→22:13)
[2021-12-23] MEDS: AZITHROMYCIN 250 MG TAB PO SCH (13:51)
[2021-12-23] MEDS: guaiFENesin/CODEINE 100-10MG ORAL LIQD 5 ML PO PRN (20:31)
[2021-12-23] MEDS ORDERED: MONTELUKAST 10 MG TAB PO SCH (22:00)
[2021-12-24] MEDS: guaiFENesin/CODEINE 100-10MG ORAL LIQD 5 ML PO PRN (04:57)
[2021-12-24] MEDS: methylPREDNISolone Sod Succinate 40 MG/1 ML INJ IV SCH (05:02)
--- NOTE | 2021-12-24 08:14 | Progress Note ---
Assessment and Plan Assessment and plan: History of present illness: 41-year-old obese female history of asthma with 2 previous intubations several years ago presents to the hospital with wheezing, shortness of breath, and hypoxia. Patient reports home pulse ox reading of 74%. Patient suspected she was hypoxic because she was short of breath and had a headache. Symptoms with exertion. No alleviating factors reported. she complains of generalized chest tightness, occasional cough with sneezing. She denies calf tenderness, leg edema, history of PE/DVT, or current control pill use (history of tubal ligation). Patient was here twice this month including yesterday with acute asthma exacerbation. She has not yet filled her prednisone prescription which was provided yesterday. Patient suspects she is having frequent exacerbation because she has run out of [employer] and cannot afford to buy another afford the medication. She states her doctor who is located in [place] typically gives her free samples but she is here visiting here mother. Patient has nebulizer machine at home and uses nebulizer machine on regular basis. Hospital Course: 12/23: Still complaining of wheezes. Currently on 4L/min NC. Added budesonide to medications. home O2 eval ordered, notified CM as well. 12/24: Currently on 2l nc sats of 94%. Did not qualify for home O2 based on walk test. Normal procal, d/c rocpehin. taper steroids. Continue inhaler therapy. Assessment: #Acute respiratory failure with hypoxia - on 4l/min, wean as sats tolerate. scattered wheezes on exam - CXR: no acute findings. #SIRS - tachy/tachypneic, WBC 24.6K on admit, now downtrending. - likely reactive, doubt infection. #Asthma exacerbation #COPD exacerbation # Nicotine Abuse. - Cigarettes. attempting to quit. nicotine patch - behavioral health counseling administered which included education on benefits of smoking cessation as well as options for quitting. +15 min. #Advance care planning Disease education conducted, care plan discussed, diagnoses discussed, prognosis discussed, patient is full code, patient acknowledges understanding and agree with care plan, +30 minutes. Plan: -[id number] inhaler therapy with budesonide/duonebs. - continue azithromycin x 5 day, procalcitonin WNL can d/c rocephin - monteleukast po qhs - solumedrol IV, begin taper, dropped to 40 mg IV q8hr, will discharge on steroid taper - home O2 eval -Titrate nasal cannula down for sats greater than 92% - CM consult for possible home O2 arrangements and med cost assistance Hospitalist Physical - Physical exam Narrative exam: Physical Exam: VITAL SIGNS: Reviewed. GENERAL: The patient appears normally developed, Vital signs as documented. Currently on 4 L nasal cannula HEAD: No signs of head trauma. EYES: Pupils are equal. Extraocular motions intact. EARS: Hearing grossly intact. MOUTH: Oropharynx is normal. NECK: No adenopathy, no JVD. CHEST: Wheezes bilaterally CARDIAC: Regular rate and rhythm. S1 and S2, without murmurs, gallops, or rubs. VASCULAR: No Edema. Peripheral pulses normal and equal in all extremities. ABDOMEN: Soft, non tender and non distended. No rebound or guarding, and no masses palpated. Bowel Sounds normal. MUSCULOSKELETAL: Good range of motion of all major joints. Extremities without clubbing, cyanosis or edema. NEUROLOGIC EXAM: Alert and oriented x 4. no focal sensory or strength deficits. PSYCHIATRIC: Mood normal. SKIN: detail exam as documented in skin assessment - Constitutional Vitals: Temp Pulse Resp BP Pulse Ox 97.8 F 96 H 22 126/75 94 12/23/21 21:54 12/23/21 21:54 12/23/21 22:00 12/23/21 21:54 12/23/21 22:00 General appearance: Present: severe distress, well-nourished Results - Labs CBC & Chem 7: 12/23/21 05:21 12/23/21 05:21 Labs: Laboratory Last Values WBC 19.9 K/mm3 (4.5-11.0) H 12/23/21 05:21 RBC 4.49 M/mm3 (3.65-5.03) 12/23/21 05:21 Hgb 12.9 gm/dl (10.1-14.3) 12/23/21 05:21 Hct 39.2 % (30.3-42.9) 12/23/21 05:21 MCV 87 fl (79-97) 12/23/21 05:21 MCH 29 pg (28-32) 12/23/21 05:21 MCHC 33 % (30-34) 12/23/21 05:21 RDW 14.5 % (13.2-15.2) 12/23/21 05:21 Plt Count 355 K/mm3 (140-440) 12/23/21 05:21 Add Manual Diff Complete 12/23/21 05:21 Total Counted 100 12/23/21 05:21 Seg Neutrophils % Real Estate Marketing Coordinator 12/23/21 05:21 Seg Neuts % (Manual) 95.0 % (40.0-70.0) H 12/23/21 05:21 Band Neutrophils % 0 % 12/23/21 05:21 Lymphocytes % (Manual) 3.0 % (13.4-35.0) L 12/23/21 05:21 Reactive Lymphs % (Man) 0 % 12/23/21 05:21 Monocytes % (Manual) 2.0 % (0.0-7.3) 12/23/21 05:21 Eosinophils % (Manual) 0 % (0.0-4.3) 12/23/21 05:21 Basophils % (Manual) 0 % (0.0-1.8) 12/23/21 05:21 Metamyelocytes % 0 % 12/23/21 05:21 Myelocytes % 0 % 12/23/21 05:21 Promyelocytes % 0 % 12/23/21 05:21 Blast Cells % 0 % 12/23/21 05:21 Nucleated RBC % Not Reportable 12/23/21 05:21 Seg Neutrophils # Man 18.9 K/mm3 (1.8-7.7) H 12/23/21 05:21 Band Neutrophils # 0.0 K/mm3 12/23/21 05:21 Lymphocytes # (Manual) 0.6 K/mm3 (1.2-5.4) L 12/23/21 05:21 Abs React Lymphs (Man) 0.0 K/mm3 12/23/21 05:21 Monocytes # (Manual) 0.4 K/mm3 (0.0-0.8) 12/23/21 05:21 Eosinophils # (Manual) 0.0 K/mm3 (0.0-0.4) 12/23/21 05:21 Basophils # (Manual) 0.0 K/mm3 (0.0-0.1) 12/23/21 05:21 Metamyelocytes # 0.0 K/mm3 12/23/21 05:21 Myelocytes # 0.0 K/mm3 12/23/21 05:21 Promyelocytes # 0.0 K/mm3 12/23/21 05:21 Blast Cells # 0.0 K/mm3 12/23/21 05:21 WBC Morphology Not Reportable 12/23/21 05:21 Hypersegmented Neuts Not Reportable 12/23/21 05:21 Hyposegmented Neuts Not Reportable 12/23/21 05:21 Hypogranular Neuts Not Reportable 12/23/21 05:21 Smudge Cells Not Reportable 12/23/21 05:21 Toxic Granulation Not Reportable 12/23/21 05:21 Toxic Vacuolation Not Reportable 12/23/21 05:21 Dohle Bodies Not Reportable 12/23/21 05:21 Pelger-Huet Anomaly Not Reportable 12/23/21 05:21 Carlos Rods Not Reportable 12/23/21 05:21 Platelet Estimate Consistent w auto 12/23/21 05:21 Clumped Platelets Not Reportable 12/23/21 05:21 Plt Clumps, EDTA Not Reportable 12/23/21 05:21 Large Platelets Not Reportable 12/23/21 05:21 Giant Platelets Not Reportable 12/23/21 05:21 Platelet Satelliting Not Reportable 12/23/21 05:21 Plt Morphology Comment Not Reportable 12/23/21 05:21 RBC Morphology Not Reportable 12/23/21 05:21 Dimorphic RBCs Not Reportable 12/23/21 05:21 Polychromasia Not Reportable 12/23/21 05:21 Hypochromasia Not Reportable 12/23/21 05:21 Poikilocytosis Not Reportable 12/23/21 05:21 Anisocytosis Not Reportable 12/23/21 05:21 Microcytosis Not Reportable 12/23/21 05:21 Macrocytosis Not Reportable 12/23/21 05:21 Spherocytes Not Reportable 12/23/21 05:21 Pappenheimer Bodies Not Reportable 12/23/21 05:21 Sickle Cells Not Reportable 12/23/21 05:21 Target Cells Not Reportable 12/23/21 05:21 Tear Drop Cells Not Reportable 12/23/21 05:21 Ovalocytes Not Reportable 12/23/21 05:21 Helmet Cells Not Reportable 12/23/21 05:21 [place] Bodies Not Reportable 12/23/21 05:21 [place] Rings Not Reportable 12/23/21 05:21 Lindsay Cells Not Reportable 12/23/21 05:21 Bite Cells Not Reportable 12/23/21 05:21 Crenated Cell Not Reportable 12/23/21 05:21 Elliptocytes Not Reportable 12/23/21 05:21 Acanthocytes (Spur) Not Reportable 12/23/21 05:21 Rouleaux Not Reportable 12/23/21 05:21 Hemoglobin C Crystals Not Reportable 12/23/21 05:21 Schistocytes Not Reportable 12/23/21 05:21 Malaria parasites Not Reportable 12/23/21 05:21 Werner Bodies Not Reportable 12/23/21 05:21 Hem Pathologist Commnt No 12/23/21 05:21 PT 13.7 Sec. (12.2-14.9) 12/22/21 12:17 INR 0.95 (0.87-1.13) 12/22/21 12:17 Sodium 137 mmol/L (137-145) 12/23/21 05:21 Potassium 4.5 mmol/L (3.6-5.0) 12/23/21 05:21 Chloride 104.4 mmol/L (98-107) 12/23/21 05:21 Carbon Dioxide 20 mmol/L (22-30) L 12/23/21 05:21 Anion Gap 17 mmol/L 12/23/21 05:21 BUN 16 mg/dL (7-17) 12/23/21 05:21 Creatinine 0.8 mg/dL (0.6-1.2) 12/23/21 05:21 Estimated GFR > 60 ml/min 12/23/21 05:21 BUN/Creatinine Ratio 20 % 12/23/21 05:21 Glucose 152 mg/dL (65-100) H 12/23/21 05:21 Calcium 8.5 mg/dL (8.4-10.2) 12/23/21 05:21 Total Bilirubin < 0.20 mg/dL (0.1-1.2) 12/23/21 05:21 AST 11 units/L (5-40) 12/23/21 05:21 ALT 20 units/L (7-56) 12/23/21 05:21 Alkaline Phosphatase 91 units/L (35-129) 12/23/21 05:21 Total Protein 6.9 g/dL (6.3-8.2) 12/23/21 05:21 Albumin 3.9 g/dL (3.9-5) 12/23/21 05:21 Albumin/Globulin Ratio 1.3 % 12/23/21 05:21 Procalcitonin 0.12 ng/mL (<0.15) 12/23/21 13:43 Microbiology: Microbiology 12/22/21 15:39 Peripheral/Venous Blood Culture - Preliminary NO GROWTH AFTER 24 HOURS 12/22/21 15:39 Peripheral/Venous Blood Culture - Preliminary NO GROWTH AFTER 24 HOURS Hugo/IV: Voiding Method Toilet Active Medications - Current Medications Current Medications: Generic Name Dose Route Start Last Admin Trade Name Freq PRN Reason Stop Dose Admin Acetaminophen 650 mg 12/22/21 15:13 Acetaminophen 325 Mg Tab PO Q4H PRN Pain MILD(1-3)/Fever >100.5/TE[place]UE Albuterol 2.5 mg 12/23/21 01:36 12/23/21 02:12 Albuterol 2.5 Mg/3 Ml Nebu IH 2.5 mg Q4HRT PRN Administration Shortness Of Breath Albuterol/Ipratropium 1 ampul 12/23/21 08:00 12/23/21 21:18 Ipratropium/Albuterol Sulfate 3 Ml Ampul.Neb IH 1 ampul QIDRT ANTHONY Administration Azithromycin 500 mg 12/23/21 10:00 12/23/21 13:51 Azithromycin 250 Mg Tab PO 12/26/21 10:01 500 mg QDAY ANTHONY Administration Benzonatate 100 mg 12/22/21 21:35 12/24/21 00:16 Benzonatate 100 Mg Cap PO 100 mg Q8HR PRN Administration Cough Budesonide 0.5 mg 12/23/21 10:15 12/23/21 21:19 Budesonide 0.5 Mg/2 Ml Nebu IH 0.5 mg Q12HRT ANTHONY Administration Famotidine 20 mg 12/23/21 10:00 12/23/21 22:13 Famotidine 20 Mg Tab PO 20 mg BID ANTHONY Administration Methylprednisolone Sodium Succinate 40 mg 12/24/21 08:08 Methylprednisolone Sod Succinate 40 Mg/1 Ml Inj IV Q8HR ANTHONY Metoclopramide HCl 10 mg 12/22/21 21:39 Metoclopramide 10 Mg/2 Ml Inj IV Q6H PRN Nausea And Vomiting Montelukast Sodium 10 mg 12/23/21 22:00 12/23/21 22:13 Montelukast 10 Mg Tab PO 10 mg QHS ANTHONY Administration Morphine Sulfate 2 mg 12/22/21 15:14 Morphine 2 Mg/1 Ml Inj IV Q4H PRN Pain, Moderate (4-6) Ondansetron HCl 4 mg 12/22/21 15:13 Ondansetron 4 Mg/2 Ml Inj IV Q8H PRN Nausea And Vomiting Oxycodone/Acetaminophen 1 tab 12/22/21 21:39 Oxycodone /Acetaminophen 5-325mg Tab PO Q6H PRN Pain, Moderate (4-6) Pseudoephedrine/Acetam/Chlorphenir 10 ml 12/22/21 21:35 12/24/21 04:57 Guaifenesin/Codeine 100-10mg Oral Liqd 5 Ml PO 10 ml TID PRN Administration Cough Sodium Chloride 10 ml 12/22/21 22:00 12/23/21 22:21 Sodium Chloride 0.9% 10 Ml Flush Syringe IV 10 ml BID ANTHONY Administration Sodium Chloride 10 ml 12/22/21 21:38 Sodium Chloride 0.9% 10 Ml Flush Syringe IV PRN PRN LINE FLUSH
[2021-12-24] MEDS: FAMOTIDINE 20 MG TAB PO SCH (09:00)
[2021-12-24] MEDS: AZITHROMYCIN 250 MG TAB PO SCH (09:00)
[2021-12-24 09:05] VITALS: BP 142/76
[2021-12-24] MEDS: IPRATROPIUM/ALBUTEROL SULFATE 3 ML AMPUL.NEB IH SCH ×2 (09:07→14:43)
[2021-12-24] MEDS: BUDESONIDE 0.5 MG/2 ML NEBU IH SCH (09:07)
--- NOTE | 2021-12-24 09:58 | Discharge Summary ---
Providers - Providers Date of Admission: 12/22/21 15:13 Date of discharge: 12/24/21 Attending physician: RENETTA MAY MD Primary care physician: FUNERAL SERVICE MANAGER Hospitalization Reason for admission: shortness of breath Condition: Stable Hospital course: History of present illness: 41-year-old obese female history of asthma with 2 previous intubations several years ago presents to the hospital with wheezing, shortness of breath, and hypoxia. Patient reports home pulse ox reading of 74%. Patient suspected she was hypoxic because she was short of breath and had a headache. Symptoms with exertion. No alleviating factors reported. she complains of generalized chest tightness, occasional cough with sneezing. She denies calf tenderness, leg edema, history of PE/DVT, or current control pill use (history of tubal ligation). Patient was here twice this month including yesterday with acute asthma exacerbation. She has not yet filled her prednisone prescription which was provided yesterday. Patient suspects she is having frequent exacerbation because she has run out of [employer] and cannot afford to buy another afford the medication. She states her doctor who is located in [place] typically gives her free samples but she is here visiting here mother. Patient has nebulizer machine at home and uses nebulizer machine on regular basis. Hospital Course: 12/23: Still complaining of wheezes. Currently on 4L/min NC. Added budesonide to medications. home O2 eval ordered, notified CM as well. 12/24: Currently on 2l nc sats of 94%, wean to room air. Did not qualify for home O2 based on walk test. Normal procal, d/c rocpehin. taper steroids. Continue inhaler therapy. Discharge home today with rx for azithromycin, prednisone taper, albuterol rescue inhaler, atrovent inhaler, symbicort inhlaer, monteleukast, and robitussin. Assessment: #Acute respiratory failure with hypoxia - on 4l/min, wean as sats tolerate. scattered wheezes on exam - CXR: no acute findings. #SIRS - tachy/tachypneic, WBC 24.6K on admit, now downtrending. - likely reactive, doubt infection. #Asthma exacerbation #COPD exacerbation # Nicotine Abuse. - Cigarettes. attempting to quit. nicotine patch - behavioral health counseling administered which included education on benefits of smoking cessation as well as options for quitting. +15 min. #Advance care planning Disease education conducted, care plan discussed, diagnoses discussed, prognosis discussed, patient is full code, patient acknowledges understanding and agree with care plan, +30 minutes. Plan: -Klgffi-[id number] inhaler therapy with budesonide/duonebs. - continue azithromycin x 5 day, procalcitonin WNL can d/c rocephin - monteleukast po qhs - solumedrol IV, begin taper, dropped to 40 mg IV q8hr, will discharge on steroid taper - home O2 eval -Titrate nasal cannula down for sats greater than 92% - CM consult for possible home O2 arrangements and med cost assistance Disposition: HOME / SELF CARE / HOMELESS Final Discharge Diagnosis (Prints w/discharge instructions): COPD exacerbation Time spent for discharge: 35 Core Measure Documentation - Palliative Care Palliative Care/ Comfort Measures: Not Applicable - Core Measures Any of the following diagnoses?: none Exam - Physical Exam Narrative exam: Physical Exam: VITAL SIGNS: Reviewed. GENERAL: The patient appears normally developed, Vital signs as documented. Currently on 4 L nasal cannula HEAD: No signs of head trauma. EYES: Pupils are equal. Extraocular motions intact. EARS: Hearing grossly intact. MOUTH: Oropharynx is normal. NECK: No adenopathy, no JVD. CHEST: Wheezes bilaterally (interval improvement) CARDIAC: Regular rate and rhythm. S1 and S2, without murmurs, gallops, or rubs. VASCULAR: No Edema. Peripheral pulses normal and equal in all extremities. ABDOMEN: Soft, non tender and non distended. No rebound or guarding, and no masses palpated. Bowel Sounds normal. MUSCULOSKELETAL: Good range of motion of all major joints. Extremities without clubbing, cyanosis or edema. NEUROLOGIC EXAM: Alert and oriented x 4. no focal sensory or strength deficits. PSYCHIATRIC: Mood normal. SKIN: detail exam as documented in skin assessment - Constitutional Vitals: Temp Pulse Resp BP Pulse Ox 97 F L 87 16 142/76 94 12/24/21 09:04 12/24/21 09:04 12/24/21 09:04 12/24/21 09:04 12/24/21 09:08 Plan Follow up with: PRIMARY CAREMD [Primary Care Provider] - 7 Days
[2021-12-24 12:04] LABS: Hematocrit 40.2 % (30.3-42.9); Hemoglobin 12.9 gm/dl (10.1-14.3); Mean Corpuscular HGB Conc 32 % (30-34); Mean Corpuscular Volume 89 fl (79-97); Platelet Count 369 K/mm3 (140-440); Red Blood Count 4.49 M/mm3 (3.65-5.03); Red Cell Distribution Width 14.7 % (13.2-15.2)
[2021-12-24 13:46] LABS: Basophils % (Manual) 0 % (0.0-1.8); Eosinophils % (Manual) 0 % (0.0-4.3); Total Cells Counted 100
[2021-12-24 13:48] LABS: Hypersegmented Neutrophils Rare; Ovalocytes Rare; Poikilocytosis Few; Spherocytes Few
[2021-12-24 13:49] LABS: Large Platelets Rare; Platelet Estimate Consistent w Auto
[2021-12-24] MEDS ORDERED: methylPREDNISolone Sod Succinate 40 MG/1 ML INJ IV SCH (14:00)
== END 2021-12-24 15:42 | disposition home or self-care (01) | DRG 189 ==
LOC: ED 08:12 → 3A 15:13
PROVIDERS: ADMIT Internal Medicine; ATTEND Internal Medicine
DX: J96.01 Acute respiratory failure with hypoxia (principal); J45.902 Unspecified asthma with status asthmaticus; Z68.45 Body mass index [BMI] 70 or greater, adult; J44.1 Chronic obstructive pulmonary disease with (acute) exacerbation; R65.10 Systemic inflammatory response syndrome (SIRS) of non-infectious origin without acute organ dysfunction; E66.9 Obesity, unspecified; Z98.51 Tubal ligation status; F17.210 Nicotine dependence, cigarettes, uncomplicated; Z91.012 Allergy to eggs; Z82.49 Family history of ischemic heart disease and other diseases of the circulatory system
CPT/HCPCS: 36415; 71045; 80048; 80053; 84145; 85007; 85025; 85610; 87040; 93005; 94640; 94760; 96372; 96374; 99283; G0378; J3490; J0456; J0696; J1100; J2920; J2930; J3105; J3475; J7030